=== PATIENT | female | born 1965 | race Caucasian/White ===

== ENCOUNTER 2017-11-15 05:33 | Day surgery (SDC) | payer OTHER ==
[2017-11-15] MEDS ORDERED: CEFAZOLIN 2 GM/50 ML (PMX) 50 ML IVPB (06:29)
[2017-11-15] MEDS: DEXTROSE 5%-LR 1,000 ML IV (06:30)
[2017-11-15] MEDS ORDERED: CEFAZOLIN 1 GM INJ (07:00)
[2017-11-15] MEDS ORDERED: LIDOCAINE 2% (SDV) 5 ML INJ (07:00)
[2017-11-15] MEDS ORDERED: METOCLOPRAMIDE 10 MG INJ (07:00)
[2017-11-15] MEDS ORDERED: DEXAMETHASONE 4 MG/ML 1 ML INJ (07:00)
[2017-11-15] MEDS ORDERED: MIDAZOLAM 1 MG/ML 2 ML INJ (07:27)
[2017-11-15] MEDS ORDERED: FENTAnyl 50 MCG/ML VIAL (07:27)
[2017-11-15] MEDS ORDERED: PROPOFOL 20 ML (07:28)
[2017-11-15] MEDS ORDERED: HYDROmorphONE 1 MG/5 ML IV SYRINGE IV (07:30)
[2017-11-15] MEDS ORDERED: MEPERIDINE 25 MG INJ IV (07:30)
[2017-11-15] MEDS ORDERED: DIPHENHYDRAMINE 50 MG INJ IV (07:30)
[2017-11-15] MEDS ORDERED: ONDANSETRON 4 MG INJ IV (07:30)
[2017-11-15] MEDS ORDERED: ONDANSETRON 4 MG INJ (07:30)
[2017-11-15] MEDS ORDERED: FENTAnyl 50 MCG/ML VIAL IV ×2 (07:30)
[2017-11-15] MEDS: HYDROmorphONE 1 MG/5 ML IV SYRINGE IV ×2 (09:34→10:02)
== END 2017-11-15 10:31 | disposition home or self-care (01) ==
LOC: SDS 05:33
DX: N84.1 Polyp of cervix uteri (principal); D25.9 Leiomyoma of uterus, unspecified
CPT/HCPCS: 58558; 88305

== ENCOUNTER 2017-12-06 07:03 | Inpatient (IN) | payer OTHER ==
[2017-12-06] MEDS: DEXTROSE 5%-LR 1,000 ML IV ×2 (08:40→18:10)
[2017-12-06] MEDS: HYDROmorphONE 0.5 MG/0.5 ML SYG IV ×3 (08:40→19:04)
[2017-12-06] MEDS: BARIUM SULF 2% 450 ML BTL (BERRY SMOOTHIE) PO ×2 (10:49→10:50)
[2017-12-06 11:54] LABS: ADD MAN DIFF? NO
[2017-12-06] MEDS: PHENAZOPYRIDINE 200 MG TAB PO ×2 (12:00→21:18)
[2017-12-06 12:09] LABS: WHITE BLOOD COUNT 7.8 10^3/ul (4.8-10.8)
[2017-12-06 12:09] LABS: BASOPHILS % 0.5 % (0.0-2.0); EOSINOPHILS # 0.1 10^3/ul (0.0-0.5); EOSINOPHILS % 1.1 % (0.0-7.0); HEMATOCRIT 36.4 % (37.0-47.0); LYMPHOCYTES # 2.9 10^3/ul (0.8-2.9); MEAN CORPUSCULAR VOLUME 87.9 fl (82.0-101.0); MEAN PLATELET VOLUME 9.3 fl (7.4-10.4); MONOCYTE # 0.5 10^3/ul (0.3-0.9); MONOCYTES % 6.3 % (0.0-11.0); NEUTROPHIL # 4.3 10^3/ul (1.6-7.5); PLATELET COUNT 266 10^3/UL (140-415); RED BLOOD COUNT 4.14 10^6/ul (4.20-5.40)
[2017-12-06 12:24] LABS: ANION GAP 11 (8-16); BLOOD UREA NITROGEN 10 mg/dl (7-20); CALCIUM 8.8 mg/dl (8.4-10.2); CARBON DIOXIDE 29 mmol/L (21-31); CHLORIDE 105 mmol/L (97-110); CREATININE 0.69 mg/dl (0.44-1.00); GLUCOSE 93 mg/dl (70-220); POTASSIUM 3.9 mmol/L (3.5-5.1); SODIUM 141 mmol/L (135-144)
[2017-12-06 12:25] LABS: ALANINE AMINOTRANSFERASE 39 IU/L (13-69); ALBUMIN 3.2 g/dl (3.3-4.9); ALBUMIN/GLOBULIN RATIO 0.94; ALKALINE PHOSPHATASE 70 IU/L (42-121); ANION GAP 10 (8-16); ASPARTATE AMINO TRANSFERASE 26 IU/L (15-46); BILIRUBIN,INDIRECT 0.6 mg/dl (0-1.1); BILIRUBIN,TOTAL 0.6 mg/dl (0.2-1.3); BLOOD UREA NITROGEN 10 mg/dl (7-20); CALCIUM 8.8 mg/dl (8.4-10.2); CARBON DIOXIDE 30 mmol/L (21-31); CHLORIDE 106 mmol/L (97-110); CREATININE 0.68 mg/dl (0.44-1.00); GLUCOSE 93 mg/dl (70-220); POTASSIUM 3.9 mmol/L (3.5-5.1); SODIUM 142 mmol/L (135-144); TOTAL PROTEIN 6.6 g/dl (6.1-8.1)
[2017-12-06] MEDS: CEFTRIAXONE 1 GM/50 ML (PMX) 50 ML IVPB (13:21)
[2017-12-06] MEDS: SOD CHLORIDE 0.9% 100 ML (13:48)
[2017-12-06] MEDS: IOHEXOL 300MG/ML 150 ML BTL (13:48)
[2017-12-06] MEDS: ACETAMINOPHEN 325 MG TAB PO (14:16)
[2017-12-06] MEDS ORDERED: PHENAZOPYRIDINE 100 MG TAB PO (21:00)
[2017-12-06] MEDS: SENNA TAB PO (21:18)
[2017-12-06] MEDS: GABAPENTIN 100 MG CAP PO (21:19)
[2017-12-07] MEDS: DEXTROSE 5%-LR 1,000 ML IV ×4 (02:49→20:55)
[2017-12-07] MEDS: HYDROmorphONE 0.5 MG/0.5 ML SYG IV ×4 (03:19→21:00)
[2017-12-07] MEDS: ACETAMINOPHEN 325 MG TAB PO (03:36)
[2017-12-07] MEDS: PANTOPRAZOLE (EC) 40 MG TAB PO ×2 (06:07→17:21)
[2017-12-07 06:09] LABS: ADD UMIC YES; UR ASCORBIC ACID NEGATIVE (NEGATIVE); UR BILIRUBIN (Dip) NEGATIVE (NEGATIVE); UR BLOOD (Dip) NEGATIVE (NEGATIVE); UR CLARITY CLEAR (CLEAR); UR COLOR AMBER (YELLOW); UR GLUCOSE (Dip) NEGATIVE (NEGATIVE); UR KETONES (Dip) NEGATIVE (NEGATIVE); UR LEUKOCYTE ESTERASE (Dip) NEGATIVE Leu/ul (NEGATIVE); UR NITRITE (Dip) POSITIVE (NEGATIVE); UR RBC 1 /HPF (0-5); UR SPECIFIC GRAVITY (Dip) 1.011 (1.003-1.030); UR TOTAL PROTEIN (Dip) NEGATIVE (NEGATIVE); UR UROBILINOGEN (Dip) 2+ mg/dL (NEGATIVE); UR WBC 0 /HPF (0-5)
[2017-12-07] MEDS: SENNA TAB PO ×2 (08:01→20:54)
[2017-12-07] MEDS: PHENAZOPYRIDINE 200 MG TAB PO ×3 (08:01→20:54)
[2017-12-07] MEDS: CEFTRIAXONE 1 GM/50 ML (PMX) 50 ML IVPB (08:01)
[2017-12-07 08:57] LABS: LACTIC ACID 0.8 mmol/L (0.5-2.0)
[2017-12-07] MEDS: POLYETHYLENE GLYCOL 17 GM PACKET PO (14:30)
[2017-12-07] MEDS: IBUPROFEN 600 MG TAB PO ×2 (17:21→18:37)
[2017-12-07] MEDS: GABAPENTIN 100 MG CAP PO (20:55)
[2017-12-07] MEDS: ONDANSETRON 4 MG INJ IV (22:06)
[2017-12-08] MEDS: DEXTROSE 5%-LR 1,000 ML IV ×2 (05:03→17:14)
[2017-12-08] MEDS: PANTOPRAZOLE (EC) 40 MG TAB PO (06:24)
[2017-12-08] MEDS: HYDROCODONE/APAP (5/325) TAB PO ×2 (06:27→16:57)
[2017-12-08] MEDS: POLYETHYLENE GLYCOL 17 GM PACKET PO (08:30)
[2017-12-08] MEDS: PHENAZOPYRIDINE 200 MG TAB PO ×3 (08:30→20:21)
[2017-12-08] MEDS: CEFTRIAXONE 1 GM/50 ML (PMX) 50 ML IVPB (08:31)
[2017-12-08] MEDS: SENNA TAB PO ×2 (08:33→20:21)
[2017-12-08] MEDS: ONDANSETRON 4 MG INJ IV (09:25)
[2017-12-08] MEDS ORDERED: GENTAMICIN IV PER PHARMACY XX (12:30)
[2017-12-08] MEDS: LACTULOSE 30ML CUP PO (12:54)
[2017-12-08] MEDS: METOCLOPRAMIDE 10 MG INJ IV ×2 (12:55→18:38)
[2017-12-08] MEDS: CLINDAMYCIN 900 MG/D5W (PMX) 50 ML IVPB (14:00)
[2017-12-08] MEDS ORDERED: GENTAMICIN IN NACL, ISO-OSM 50 ML IVPB (15:00)
[2017-12-08] MEDS: GENTAMICIN IVPB (18:38)
[2017-12-08] MEDS: DEXTROSE 5% IVPB (18:38)
[2017-12-08] MEDS: GABAPENTIN 100 MG CAP PO (20:21)
[2017-12-08] MEDS: CLINDAMYCIN 600 MG/D5W (PMX) 50 ML IVPB (20:22)
[2017-12-09] MEDS: METOCLOPRAMIDE 10 MG INJ IV ×4 (03:28→18:01)
[2017-12-09] MEDS: DEXTROSE 5%-LR 1,000 ML IV ×3 (03:28→17:01)
[2017-12-09] MEDS: CLINDAMYCIN 600 MG/D5W (PMX) 50 ML IVPB ×4 (03:28→19:57)
[2017-12-09] MEDS: PANTOPRAZOLE (EC) 40 MG TAB PO (06:49)
[2017-12-09 06:59] LABS: GENTAMICIN,RANDOM 2.1 ug/ml
[2017-12-09 07:12] LABS: BLOOD UREA NITROGEN 5 mg/dl (7-20)
[2017-12-09 07:12] LABS: CREATININE 0.68 mg/dl (0.44-1.00)
[2017-12-09] MEDS: POLYETHYLENE GLYCOL 17 GM PACKET PO (09:00)
[2017-12-09] MEDS: SENNA TAB PO ×2 (09:00→21:00)
[2017-12-09 14:53] LABS: ADD MAN DIFF? NO
[2017-12-09 14:55] LABS: BASOPHILS % 0.5 % (0.0-2.0); EOSINOPHILS % 0.5 % (0.0-7.0); HEMATOCRIT 38.5 % (37.0-47.0); HEMOGLOBIN 12.7 g/dl (12.0-16.0); LYMPHOCYTES % 25.2 % (15.0-51.0); MEAN CORPUSCULAR HEMOGLOBIN 28.9 pg (29.0-33.0); MEAN CORPUSCULAR VOLUME 87.5 fl (82.0-101.0); MONOCYTE # 0.4 10^3/ul (0.3-0.9); MONOCYTES % 5.2 % (0.0-11.0); NEUTROPHIL # 5.4 10^3/ul (1.6-7.5); NEUTROPHILS % 68.3 % (39.0-77.0); PLATELET COUNT 261 10^3/UL (140-415); RED CELL DISTRIBUTION WIDTH 11.5 % (11.5-14.5)
[2017-12-09 14:55] LABS: WHITE BLOOD COUNT 7.9 10^3/ul (4.8-10.8)
[2017-12-09 15:15] LABS: INR 0.97
[2017-12-09 15:16] LABS: PARTIAL THROMBOPLASTIN TIME 28.2 Sec (23.0-35.0)
[2017-12-09 15:17] LABS: ANION GAP 13 (8-16); BLOOD UREA NITROGEN 4 mg/dl (7-20); CALCIUM 9.4 mg/dl (8.4-10.2); CARBON DIOXIDE 29 mmol/L (21-31); CHLORIDE 106 mmol/L (97-110); CHOL/HDL RATIO 2.9 RATIO; CHOLESTEROL 154 mg/dl (100-200); CREATINE KINASE 57 IU/L (23-200); CREATININE 0.66 mg/dl (0.44-1.00); GLUCOSE 115 mg/dl (70-220); HDL CHOLESTEROL 53 mg/dl (37-92); LDL CHOLESTEROL,CALCULATED 71 mg/dl; POTASSIUM 3.5 mmol/L (3.5-5.1); SODIUM 144 mmol/L (135-144); TRIGLYCERIDES 152 mg/dl (0-149)
[2017-12-09 15:23] LABS: HEMOGLOBIN A1C 5.3 % (0-5.9)
[2017-12-09 15:29] LABS: CK INDEX 0.4; CK-MB 0.24 ng/ml (0.0-2.4); TROPONIN-I < 0.012 ng/ml (0.000-0.120)
[2017-12-09 15:41] LABS: LACTIC ACID 2.7 mmol/L (0.5-2.0)
[2017-12-09] MEDS: ATORVASTATIN 40 MG TAB PO (17:11)
[2017-12-09] MEDS: ASPIRIN (EC) 325 MG TAB PO (17:11)
[2017-12-09] MEDS: PROCHLORPERAZINE 10 MG TAB PO (18:17)
[2017-12-09] MEDS: DEXTROSE 5% IVPB (18:19)
[2017-12-09] MEDS: GENTAMICIN IVPB (18:19)
[2017-12-09] MEDS: GABAPENTIN 100 MG CAP PO (21:00)
[2017-12-10] MEDS: DEXTROSE 5%-LR 1,000 ML IV ×2 (02:21)
[2017-12-10] MEDS: CLINDAMYCIN 600 MG/D5W (PMX) 50 ML IVPB ×4 (02:21→21:40)
[2017-12-10] MEDS: METOCLOPRAMIDE 10 MG INJ IV ×4 (05:34→18:35)
[2017-12-10] MEDS: PANTOPRAZOLE (EC) 40 MG TAB PO (05:35)
[2017-12-10] MEDS: SENNA TAB PO ×2 (08:59→20:18)
[2017-12-10] MEDS: POLYETHYLENE GLYCOL 17 GM PACKET PO (08:59)
[2017-12-10 11:49] LABS: LACTIC ACID 1.1 mmol/L (0.5-2.0)
[2017-12-10] MEDS ORDERED: SUMATRIPTAN 50 MG TAB PO (12:30)
[2017-12-10] MEDS: LACTULOSE 30ML CUP PO (13:27)
[2017-12-10 17:48] LABS: GENTAMICIN,TROUGH < 0.6 ug/ml (1.0-2.0)
[2017-12-10 19:52] LABS: ADD UMIC NO; UR ASCORBIC ACID NEGATIVE (NEGATIVE); UR BILIRUBIN (Dip) NEGATIVE (NEGATIVE); UR BLOOD (Dip) NEGATIVE (NEGATIVE); UR CLARITY CLEAR (CLEAR); UR COLOR YELLOW (YELLOW); UR GLUCOSE (Dip) NEGATIVE (NEGATIVE); UR KETONES (Dip) NEGATIVE (NEGATIVE); UR LEUKOCYTE ESTERASE (Dip) NEGATIVE Leu/ul (NEGATIVE); UR NITRITE (Dip) NEGATIVE (NEGATIVE); UR TOTAL PROTEIN (Dip) NEGATIVE (NEGATIVE); UR UROBILINOGEN (Dip) NEGATIVE (NEGATIVE)
[2017-12-10] MEDS: HYDROCODONE/APAP (5/325) TAB PO (20:17)
[2017-12-10] MEDS: DEXTROSE 5% IVPB (20:17)
[2017-12-10] MEDS: GENTAMICIN IVPB (20:17)
[2017-12-10] MEDS: GABAPENTIN 100 MG CAP PO (20:17)
[2017-12-10 20:30] LABS: AMPHETAMINE/METHAMPHETAMINE Negative (NEGATIVE); BARBITURATES Negative (NEGATIVE); BENZODIAZEPINES Negative (NEGATIVE); CANNABINOIDS Negative (NEGATIVE); COCAINE Negative (NEGATIVE); OPIATES Negative (NEGATIVE)
[2017-12-10] MEDS: IBUPROFEN 600 MG TAB PO (21:42)
[2017-12-11] MEDS: CLINDAMYCIN 600 MG/D5W (PMX) 50 ML IVPB ×5 (01:58→23:55)
[2017-12-11] MEDS: ALPRAZOLAM 0.25 MG TAB PO (01:58)
[2017-12-11] MEDS: METOCLOPRAMIDE 10 MG INJ IV ×5 (06:00→23:55)
[2017-12-11] MEDS: PANTOPRAZOLE (EC) 40 MG TAB PO (06:00)
[2017-12-11 08:23] LABS: BLOOD UREA NITROGEN 12 mg/dl (7-20)
[2017-12-11 08:23] LABS: CREATININE 0.62 mg/dl (0.44-1.00)
[2017-12-11] MEDS: POLYETHYLENE GLYCOL 17 GM PACKET PO (09:00)
[2017-12-11] MEDS: SENNA TAB PO ×2 (09:00→20:17)
[2017-12-11] MEDS: GENTAMICIN IVPB (18:09)
[2017-12-11] MEDS: DEXTROSE 5% IVPB (18:09)
[2017-12-11] MEDS: GABAPENTIN 100 MG CAP PO (20:17)
[2017-12-11] MEDS: ACETAMINOPHEN 325 MG TAB PO (20:23)
[2017-12-12] MEDS: METOCLOPRAMIDE 10 MG INJ IV (06:00)
[2017-12-12] MEDS: PANTOPRAZOLE (EC) 40 MG TAB PO (06:03)
[2017-12-12] MEDS: CLINDAMYCIN 600 MG/D5W (PMX) 50 ML IVPB (06:03)
[2017-12-12] MEDS: SENNA TAB PO (09:00)
[2017-12-12] MEDS: POLYETHYLENE GLYCOL 17 GM PACKET PO (09:00)
== END 2017-12-12 13:10 | disposition home or self-care (01) | DRG 759 ==
LOC: TEL 12-09 14:50 → 2NE 12-12 01:19
DX: N70.91 Salpingitis, unspecified (principal); N30.90 Cystitis, unspecified without hematuria; K29.70 Gastritis, unspecified, without bleeding; K59.00 Constipation, unspecified; G43.909 Migraine, unspecified, not intractable, without status migrainosus; R47.81 Slurred speech; R29.810 Facial weakness; R29.700 NIHSS score 0
CPT/HCPCS: 70450; 70544; 70548; 70551; 71045; 74178; 76705; 76830; 76856; 80048; 80053; 80061; 80170; 80307; 81001; 81003; 82550; 82553; 82565; 82962; 83036; 83605; 84484; 84520; 85025; 85610; 85730; 87040; 87086; 93306